=== PATIENT | female | born 2000 | race Caucasian/White ===

== ENCOUNTER → 2024-03-06 | Outpatient (CLI) | payer OTHER, SELFPAY ==
[2024-03-06 12:41] LABS: Absolute Lymphocyte Count 2.18 X10^3/uL (0.83-4.51); Absolute Neutrophil Count 5.3 X10^3/uL (2.0-7.7); Basophil# 0.07 X10^3/uL; Basophil% 0.9 % (0-1); Eosinophil# 0.21 X10^3/uL; Eosinophils% 2.6 % (0-5); Hematocrit 42.2 % (37-47); Hemoglobin 13.5 g/dL (12.0-15.0); Lymphocyte # 2.18 X10^3/ul (0.83-4.51); Lymphocyte % 27.1 % (19-41); Mean Corpuscular Hgb 27.2 pg (27.0-32.0); Mean Corpuscular Volume 85.1 fL (81-99); Mean Platelet Vol. 9.3 fl (6.2-12.0); Monocyte# 0.27 X10^3/uL; Monocyte% 3.4 % (0-10); NRBC Flagged by Analyzer 0 % (0-5); Neutrophil % 65.8 % (47-70); Platelet Count 336 K/mm3 (150-450); RBC Distribution Width CV 12.5 % (11.6-14.6); RBC Distribution Width SD 38.3 fl (35.1-43.9); Red Blood Count 4.96 M/mm3 (4.2-5.4); White Blood Count 8.1 K/mm3 (4.4-11.0)
[2024-03-06 13:13] LABS: ALB/GLOB Ratio 0.8 RATIO (0.9-2.4); AST(SGOT) 10 U/L (15-37); Alanine Aminotransfer ALT/SGPT 17 U/L (13-56); Albumin, Serum 3.7 g/dL (3.2-5.0); Alkaline Phosphatase 52 U/L (45-117); Anion Gap 5 (5-15); BUN 15 mg/dL (7-18); Calcium,Total 9.8 mg/dL (8.5-10.1); Chloride 103 mmol/L (98-107); Creatinine, Serum 0.71 mg/dL (0.55-1.02); EST Glomerular Filtration Rate 106 mL/min (>60); Est Glom Filt Rate - Afr Amer 128 mL/min (>60); Globulin 4.6 g/dL (2.2-4.2); Glucose 93 mg/dL (74-106); Potassium 3.9 mmol/L (3.5-5.1); Protein, Total 8.3 g/dL (6.4-8.2); Sodium Level 135 mmol/L (136-145)
[2024-03-06 13:22] LABS: Hepatitis B Surface Antibody Non-Reactive; Hepatitis B Surface Antigen Non-Reactive (Nonreactive); Hepatitis C Antibody Non-Reactive (Nonreactive)
[2024-03-07 13:08] LABS: CCP IgG Antibodies 7 units (0-19)
== END | disposition home or self-care (01) ==
LOC: MTLAB 10:14
PROVIDERS: PCP Family Medicine; Referring Provider Internal Medicine Rheumatology; Visit Provider Internal Medicine Rheumatology
DX: M06.4 Inflammatory polyarthropathy (principal); M79.7 Fibromyalgia
CPT/HCPCS: 36415; 80053; 85025; 86200; 86431; 86706; 86803; 87340

== ENCOUNTER → 2024-09-23 | Outpatient (CLI) | payer OTHER, SELFPAY ==
--- NOTE | 2024-09-23 12:54 | RAD_ITS ---
PROCEDURE: CHEST PA AND LATERAL 09/23/2024 REASON FOR EXAM: INFLAMMATORY POLYARTHROPATHY TECHNIQUE: Frontal and lateral views of the chest. COMPARISON: None available FINDINGS: The lungs appear clear. Pulmonary vascularity appears within limits. No pleural effusion. The cardiac and mediastinal contours appear within limits. Visualized osseous structures appear within limits. RAD/Chest PA and Lateral IMPRESSION: Study appears within limits. Reading Location: [id number]
[2024-09-25 10:08] LABS: QNTFERON TB Mitogen Value > 10.00 IU/mL (.); QNTFERON TB Nil Value 0.05 IU/mL (.); QNTFERON TB1+ Ag Value 0.04 IU/mL (.); QNTFERON TB2+ Ag Value 0.02 IU/mL (.); QNTIFERON TB Positive Criteria Negative (Negative)
== END | disposition home or self-care (01) ==
LOC: MTLAB 12:52
PROVIDERS: PCP Family Medicine; Referring Provider Internal Medicine Rheumatology; Visit Provider Internal Medicine Rheumatology
DX: M06.4 Inflammatory polyarthropathy (principal); Z79.899 Other long term (current) drug therapy; M79.7 Fibromyalgia
CPT/HCPCS: 36415; 71046; 86480